=== PATIENT | female | born 1975 | race Asian ===

== ENCOUNTER 2025-06-02 10:30 | Emergency (ER) | payer SELFPAY ==
[~2025-06-02] VITALS: Ht 157.5 cm; Wt 46.3 kg
[2025-06-02] MEDS ORDERED: LIDO28.310 TP (11:14)
[2025-06-02] MEDS ORDERED: VALA100026 PO (11:14)
[2025-06-02] MEDS ORDERED: HYDR25SU33 RC (11:15)
[2025-06-02] MEDS ORDERED: CEPH-570 PO (11:15)
[2025-06-02] MEDS ORDERED: KETOROLAC TROMETHAMINE 15 MG/ML VIAL ONE (11:34)
[2025-06-02] MEDS: KETOROLAC TROMETHAMINE 15 MG/ML VIAL IM ONE (11:48)
[2025-06-02 11:49] VITALS: BP 135/70; TEMP 97.5; O2SAT 98
== END 2025-06-02 11:49 | disposition home or self-care (01) ==
LOC: ER 10:34
DX: K64.4 Residual hemorrhoidal skin tags (principal); A60.9 Anogenital herpesviral infection, unspecified; I10 Essential (primary) hypertension; R30.0 Dysuria; Z79.624 Long term (current) use of inhibitors of nucleotide synthesis; Z86.79 Personal history of other diseases of the circulatory system
CPT/HCPCS: 99283; 81025; 96372; 84703; J1885